=== PATIENT | male | born 1995 | race Caucasian/White ===

== ENCOUNTER 2019-07-04 12:36 | Emergency (ER) | payer BC ==
[~2019-07-04] VITALS: Ht 175.3 cm; Wt 130.0 kg
[2019-07-04] MEDS ORDERED: MORPHINE SULFATE 4 MG/ML CPJ (NOT FOR IM USE) IV STA (15:48)
[2019-07-04] MEDS ORDERED: ONDANSETRON HCL 4MG/2ML INJ IV STA (15:48)
[2019-07-04] MEDS ORDERED: SODIUM CHLORIDE 0.9% 1,000 ML IV ONE (16:05)
[2019-07-04 16:15] LABS: HEMOGLOBIN. 16.2 g/dL (14.0-18.0); MEAN CORPUSCULAR HEMOGLOBIN 30.5 pg (28.0-32.0); MEAN CORPUSCULAR VOLUME 88.4 fL (80.0-94.0); MEAN PLATELET VOLUME 8.1 fl (7.4-10.4); PLATELET 283 x1000/uL (130-400); RED BLOOD CELL COUNT 5.31 mill/uL (4.7-6.1); RED CELL DISTRIBUTION WIDTH 13.6 % (11.6-14.6)
[2019-07-04 16:16] LABS: CLARITY URINE CLEAR (CLEAR); COLOR URINE YELLOW (YELLOW); KETONES URINE NEGATIVE (NEGATIVE); LEUKOCYTE ESTERASE URINE NEGATIVE (NEGATIVE); NITRITE URINE NEGATIVE (NEGATIVE); OCCULT BLOOD URINE NEGATIVE (NEGATIVE); PROTEIN URINE NEGATIVE (NEGATIVE); UROBILINOGEN URINE 0.2 E.U./dL (0.2-1.0)
[2019-07-04 16:20] LABS: CHLORIDE 105 mEq/L (98-107)
[2019-07-04 16:25] LABS: ETHANOL BLOOD < 10 mg/dL
[2019-07-04 16:32] LABS: *BARBITURATES SCREEN URINE NEGATIVE (NEGATIVE)
[2019-07-04 16:33] LABS: *AMPHETAMINES SCREEN URINE NEGATIVE (NEGATIVE); *BENZODIAZEPINES SCREEN URINE NEGATIVE (NEGATIVE); *COCAINE SCREEN URINE NEGATIVE (NEGATIVE); METHADONE URINE SCREEN NEGATIVE (NEGATIVE); OPIATES URINE SCREEN NEGATIVE (NEGATIVE); PHENCYCLIDINE URINE SCREEN NEGATIVE (NEGATIVE)
[2019-07-04 16:34] LABS: CANNABINOID URINE SCREEN NEGATIVE (NEGATIVE)
[2019-07-04 16:40] LABS: PLATELET ESTIMATE NORMAL
[2019-07-04] MEDS ORDERED: CEFTRIAXONE SODIUM 1 G/VIAL IM SCH (19:00)
[2019-07-04] MEDS ORDERED: ACETAMINOPHEN 650MG/20.3ML UDC PO SCH (19:00)
[2019-07-04] MEDS ORDERED: ACETAMINOPHEN 650MG/20.3ML UDC PO ONE (19:00)
[2019-07-04 19:20] VITALS: BP 110/50
== END 2019-07-04 19:44 | disposition home or self-care (01) ==
LOC: ER 14:27
DX: R10.84 Generalized abdominal pain (principal); Z87.19 Personal history of other diseases of the digestive system
CPT/HCPCS: 36415; 74176; 80053; 80305; 80320; 81003; 83690; 85025; 96361; 96372; 96374; 96375; 99284; J0696; J2270; J2405; J7030; G0480